=== PATIENT | male | born 1985 | race Caucasian/White ===

== ENCOUNTER 2016-12-25 20:54 | Emergency (ER) | payer BC ==
--- NOTE | 2016-12-25 22:58 | ED ORDER SUMMARY ---
..... Patient: REYNA ANDERSON OrderSheet [facility] VisitID: [id number] [place] [address] 31y, M Registration Date/Time: 12/25/2016 ORDER SHEET Weight: 117.9 kg (stated) Allergies: No Known Drug Allergy GENERAL ORDERS: Visual Acuity (22:09 12/25/2016 Enedina CADET) (Ack 22:12 IJurca ER Tech1) (22:25 RCollier R.N.) MEDICATION ORDERS: Fluorescein Eye Strips [address] strips (place at bedside) (23:08 12/25/2016 RCollier R.N. per protocol) (23:09 RCollier R.N.) Proparacaine Eye Drops (Solution 0.5 %) 1 drop (place at bedside) (23:08 12/25/2016 RCollier R.N. per protocol) (23:09 RCollier R.N.) IV FLUIDS: ORDER SHEET NOTES: [Electronically signed by Reema Vyas R.N. (23:12/25/2016)] [Electronically signed by King Hurtado MD (08:35 12/27/2016)] [Electronically locked/signed by Reema Vyas R.N. (23:12/25/2016)]
--- NOTE | 2016-12-25 22:58 | ED NURSING NOTES ---
Clinical Report - Nurses [facility] [address] [place] [address] 12/25/2016 20:55 Patient: REYNA ANDERSON TRIAGE Triage time 21:55. Acuity: LEVEL 4. Chief Complaint: PAIN and FOREIGN BODY TO LEFT EYE. Alert. No acute distress. --21:59 Reema Vyas R.N. 21:55 12/25/16. BP: 133/85. HR: 79. RR: 16. O2 saturation: 98%. Temp: 98.3 F (oral). Valderrama-Kathleen pain scale: 4/10. --21:59 Reema Vyas R.N. 22:00. VISUAL ACUITY: Visual acuity performed: left eye 20/70; right eye 20/40; both eyes 20/25. Patient does not wear corrective lenses. --22:25 Reema Vyas R.N. Weight: 117.9 kg stated. Height/Length: 75 inches Per Patient. BMI: 32.5. --21:58 Reema Vyas R.N. Medications None. --22:58 Reema Vyas R.N. Allergies No Known Drug Allergy. --22:58 Reema Vyas R.N. History Arrived by private vehicle. Historian: patient. Primary physician (None). 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 This started today. Onset. (at about 1000). He may have sustained an injury. He has had eye discomfort. 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 PAST MEDICAL HX: Immunizations: up-to-date. SOCIAL HX: Never smoker. Occasional alcohol use. No drug use. NUTRITIONAL RISK ASSESSMENT: The nutritional risk assessment revealed no deficiencies. FUNCTIONAL ASSESSMENT: Functional assessment: no impairments noted. --21:59 Reema Vyas R.N. PROBLEMS: no known problems. Interventions ID band on patient. To treatment room. --21:59 Reema Vyas R.N. PHYSICAL ASSESSMENT Ambulatory to room. GENERAL / NEURO / PSYCH: Alert. Appears in no acute distress. RESPIRATORY: Respirations not labored. CVS: Capillary refill less than 2 seconds. SKIN: Skin is warm and dry. --21:59 Reema Vyas R.N. NURSING PROGRESS NOTES Head of bed elevated. Two patient identifiers checked. Call light placed in reach. Side rails up x 1. Bed placed in lowest position. Brakes of bed on. --21:59 Reema Vyas R.N. Patient ready for evaluation- chart flagged. --21:59 Reema Vyas R.N. 22:44 12/25/2016 FLUORESCEIN Opth soln Opthalmic solution 2 Strip given. Allergies verified and confirmed 5 rights. (placed at bedside for MD use). --23:09 Reema Vyas R.N. 22:44 12/25/2016 Proparacaine Eye Drops Opthalmic solution 2 drop given. Allergies verified and confirmed 5 rights. (placed at bedside for EDMD use). --23:09 Reema Vyas R.N. DISPOSITION / DISCHARGE Condition at departure: stable. No learning barriers present. Discharge instructions provided and reviewed with the patient. Reviewed medication(s) side effects, precautions, dosing and course information. Prescription(s) given to the patient. Patient verbalized understanding. Written instructions provided in Irish. The patient was discharged home. He left the Emergency Department ambulatory and via private vehicle. Patient driving. --23:08 Reema Vyas R.N. 23:03 12/25/16. BP: deferred. HR: deferred. RR: 15 (regular and unlabored). O2 saturation: deferred. Temp: deferred. Valderrama-Kathleen pain scale: 2/10. --23:08 Reema Vyas R.N. Locked/Released at 12/25/2016 23:10 by Reema Vyas R.N.
--- NOTE | 2016-12-25 22:58 | ED CLINICAL REPORT ---
Clinical Report - Physicians/Mid Levels [facility] [address] [place] [address] 12/25/2016 20:55 Patient: REYNA ANDERSON Time Seen: 21:52 Pierre 2016. Arrived- By private vehicle. Historian- patient. CPT: ER phys charges level 3 plus (#[id number]). FB cornea with slit lamp remove (#[id number]). HISTORY OF PRESENT ILLNESS Chief Complaint: EYE FOREIGN BODY. This started today, involves the left eye and is characterized as moderate in severity. This occurred at work. He has foreign material in the eye. Eye pain and discomfort. No decreased vision or loss of vision. REVIEW OF SYSTEMS No fever, sore throat or cough. All systems otherwise negative, except as recorded above. PAST HISTORY See nurses notes. Prior eye injury. Tetanus immunization status is up-to-date. Medications: None. Allergies: No Known Drug Allergy. SOCIAL HISTORY Never smoker. Occasional alcohol use. No drug use. ADDITIONAL NOTES The nursing notes have been reviewed. PHYSICAL EXAM Vital Signs: 12/25/2016 21:55 BP: 133/85. HR: 79. RR: 16. O2 saturation: 98%. Temp: 98.3 F. Valderrama-Kathleen pain scale: 4/10. Appearance: Alert. HEENT: Head appears normal to external inspection. Eyes: Visual acuity normal bilaterally. Left eyelid everted for examination. Left cornea examined with fluorescein stain. Eyelids appear normal to inspection. Conjunctivae and sclerae appear normal to inspection. Pupils equal, round and reactive to light. Accommodation normal. EOMs intact. Periorbital areas appear normal to inspection. Left eye examined with slit lamp. Anterior chambers clear. Anterior chambers of normal depth. Rt Eye: Right eye exam normal. A single small particulate corneal foreign body is present superiorly and medially. Single medium sized circular shaped corneal abrasion located centrally. CVS: Normal heart rate and rhythm. Respiratory: No respiratory distress. Skin: No rash. Neuro: Oriented X 3. PROGRESS AND PROCEDURES Removal of Eye Foreign Body: After topical anesthesia with 3 drops of Proparacaine, a single foreign body was successfully removed from the left cornea using the slit lamp (with magnification), a sterile rotating torrie and a sterile syringe with 25 gauge needle and irrigation, fluorescein and a Wood's lamp. There were no complications encountered. Aftercare included antibiotic ointment and an eye patch on the left eye. The patient was cooperative. Patient/family counseled. Disposition: Discharged. Condition: stable and improved. CLINICAL IMPRESSION Medium corneal abrasion to the left eye with foreign body. No rust ring. Removed corneal foreign body left eye. INSTRUCTIONS Warnings: Further evaluation is necessary. GENERAL WARNINGS: Return or contact your physician immediately if your condition worsens or changes unexpectedly, if not improving as expected, or if other problems arise. Prescription Medications: Hydrocodone/APAP 5mg/325mg: take 1 to 2 orally every 6 hours as needed for pain. Dispense fifteen (15). No refills. Garamycin ophthalmic solution 0.3% : Instill 1 drop into affected eye every 4 hours while awake for 1 week. Dispense five (5) mL. No refills. Substitution is permissible. Follow-up: Follow up with your doctor in two days if not better. Understanding of the discharge instructions verbalized by patient. (Electronically signed by King Hurtado MD 12/27/2016 8:35)
--- NOTE | 2016-12-25 22:58 | ED ORDER SUMMARY ---
..... Patient: REYNA ANDERSON OrderSheet [facility] VisitID: [id number] [place] [address] 31y, M Registration Date/Time: 12/25/2016 ORDER SHEET Weight: 117.9 kg (stated) Allergies: No Known Drug Allergy GENERAL ORDERS: Visual Acuity (22:09 12/25/2016 Enedina CADET) (Ack 22:12 IJurca ER Tech1) (22:25 RCollier R.N.) MEDICATION ORDERS: Fluorescein Eye Strips 2 strips (place at bedside) (23:08 12/25/2016 RCollier R.N. per protocol) (23:09 RCollier R.N.) Proparacaine Eye Drops (Solution 0.5 %) 1 drop (place at bedside) (23:08 12/25/2016 RCollier R.N. per protocol) (23:09 RCollier R.N.) IV FLUIDS: ORDER SHEET NOTES: [Electronically signed by Reema Vyas R.N. (23:12/25/2016)] [Electronically signed by King Hurtado MD (08:35 12/27/2016)] [Electronically locked/signed by Reema Vyas R.N. (23:12/25/2016)]
--- NOTE | 2016-12-25 22:58 | ED CLINICAL REPORT ---
Clinical Report - Physicians/Mid Levels [facility] [address] [place] [address] 12/25/2016 20:55 Patient: REYNA ANDERSON Time Seen: 21:52 Pierre 2016. Arrived- By private vehicle. Historian- patient. CPT: ER phys charges level 3 plus (#[id number]). FB cornea with slit lamp remove (#[id number]). HISTORY OF PRESENT ILLNESS Chief Complaint: EYE FOREIGN BODY. This started today, involves the left eye and is characterized as moderate in severity. This occurred at work. He has foreign material in the eye. Eye pain and discomfort. No decreased vision or loss of vision. REVIEW OF SYSTEMS No fever, sore throat or cough. All systems otherwise negative, except as recorded above. PAST HISTORY See nurses notes. Prior eye injury. Tetanus immunization status is up-to-date. Medications: None. Allergies: No Known Drug Allergy. SOCIAL HISTORY Never smoker. Occasional alcohol use. No drug use. ADDITIONAL NOTES The nursing notes have been reviewed. PHYSICAL EXAM Vital Signs: 12/25/2016 21:55 BP: 133/85. HR: 79. RR: 16. O2 saturation: 98%. Temp: 98.3 F. Valderrama-Kathleen pain scale: 4/10. Appearance: Alert. HEENT: Head appears normal to external inspection. Eyes: Visual acuity normal bilaterally. Left eyelid everted for examination. Left cornea examined with fluorescein stain. Eyelids appear normal to inspection. Conjunctivae and sclerae appear normal to inspection. Pupils equal, round and reactive to light. Accommodation normal. EOMs intact. Periorbital areas appear normal to inspection. Left eye examined with slit lamp. Anterior chambers clear. Anterior chambers of normal depth. Rt Eye: Right eye exam normal. A single small particulate corneal foreign body is present superiorly and medially. Single medium sized circular shaped corneal abrasion located centrally. CVS: Normal heart rate and rhythm. Respiratory: No respiratory distress. Skin: No rash. Neuro: Oriented X 3. PROGRESS AND PROCEDURES Removal of Eye Foreign Body: After topical anesthesia with 3 drops of Proparacaine, a single foreign body was successfully removed from the left cornea using the slit lamp (with magnification), a sterile rotating torrie and a sterile syringe with 25 gauge needle and irrigation, fluorescein and a Wood's lamp. There were no complications encountered. Aftercare included antibiotic ointment and an eye patch on the left eye. The patient was cooperative. Patient/family counseled. Disposition: Discharged. Condition: stable and improved. CLINICAL IMPRESSION Medium corneal abrasion to the left eye with foreign body. No rust ring. Removed corneal foreign body left eye. INSTRUCTIONS Warnings: Further evaluation is necessary. GENERAL WARNINGS: Return or contact your physician immediately if your condition worsens or changes unexpectedly, if not improving as expected, or if other problems arise. Prescription Medications: Hydrocodone/APAP 5mg/325mg: take 1 to 2 orally every 6 hours as needed for pain. Dispense fifteen (15). No refills. Garamycin ophthalmic solution 0.3% : Instill 1 drop into affected eye every 4 hours while awake for 1 week. Dispense five (5) mL. No refills. Substitution is permissible. Follow-up: Follow up with your doctor in two days if not better. Understanding of the discharge instructions verbalized by patient. (Electronically signed by King Hurtado MD 12/27/2016 8:35)
--- NOTE | 2016-12-25 22:58 | ED NURSING NOTES ---
Clinical Report - Nurses [facility] [address] [place] [address] 12/25/2016 20:55 Patient: REYNA ANDERSON TRIAGE Triage time 21:55. Acuity: LEVEL 4. Chief Complaint: PAIN and FOREIGN BODY TO LEFT EYE. Alert. No acute distress. --21:59 Reema Vyas R.N. 21:55 12/25/16. BP: 133/85. HR: 79. RR: 16. O2 saturation: 98%. Temp: 98.3 F (oral). Valderrama-Kathleen pain scale: 4/10. --21:59 Reema Vyas R.N. 22:00. VISUAL ACUITY: Visual acuity performed: left eye 20/70; right eye 20/40; both eyes 20/25. Patient does not wear corrective lenses. --22:25 Reema Vyas R.N. Weight: 117.9 kg stated. Height/Length: 75 inches Per Patient. BMI: 32.5. --21:58 Reema Vyas R.N. Medications None. --22:58 Reema Vyas R.N. Allergies No Known Drug Allergy. --22:58 Reema Vyas R.N. History Arrived by private vehicle. Historian: patient. Primary physician (None). 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 This started today. Onset. (at about 1000). He may have sustained an injury. He has had eye discomfort. 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 PAST MEDICAL HX: Immunizations: up-to-date. SOCIAL HX: Never smoker. Occasional alcohol use. No drug use. NUTRITIONAL RISK ASSESSMENT: The nutritional risk assessment revealed no deficiencies. FUNCTIONAL ASSESSMENT: Functional assessment: no impairments noted. --21:59 Reema Vyas R.N. PROBLEMS: no known problems. Interventions ID band on patient. To treatment room. --21:59 Reema Vyas R.N. PHYSICAL ASSESSMENT Ambulatory to room. GENERAL / NEURO / PSYCH: Alert. Appears in no acute distress. RESPIRATORY: Respirations not labored. CVS: Capillary refill less than 2 seconds. SKIN: Skin is warm and dry. --21:59 Reema Vyas R.N. NURSING PROGRESS NOTES Head of bed elevated. Two patient identifiers checked. Call light placed in reach. Side rails up x 1. Bed placed in lowest position. Brakes of bed on. --21:59 Reema Vyas R.N. Patient ready for evaluation- chart flagged. --21:59 Reema Vyas R.N. 22:44 12/25/2016 FLUORESCEIN Opth soln Opthalmic solution 2 Strip given. Allergies verified and confirmed 5 rights. (placed at bedside for MD use). --23:09 Reema Vyas R.N. 22:44 12/25/2016 Proparacaine Eye Drops Opthalmic solution 2 drop given. Allergies verified and confirmed 5 rights. (placed at bedside for EDMD use). --23:09 Reema Vyas R.N. DISPOSITION / DISCHARGE Condition at departure: stable. No learning barriers present. Discharge instructions provided and reviewed with the patient. Reviewed medication(s) side effects, precautions, dosing and course information. Prescription(s) given to the patient. Patient verbalized understanding. Written instructions provided in Kiswahili. The patient was discharged home. He left the Emergency Department ambulatory and via private vehicle. Patient driving. --23:08 Reema Vyas R.N. 23:03 12/25/16. BP: deferred. HR: deferred. RR: 15 (regular and unlabored). O2 saturation: deferred. Temp: deferred. Valderrama-Kathleen pain scale: 2/10. --23:08 Reema Vyas R.N. Locked/Released at 12/25/2016 23:10 by Reema Vyas R.N.
--- NOTE | 2016-12-27 08:36 | ED MAR SUMMARY ---
..... Medication Administration Record [facility] [address] [place] [address] Patient: REYNA ANDERSON Visit ID: [id number] 31y, M Weight: 117.9 kg Height/Length: 75 in BMI: 32.5 ALLERGIES: No Known Drug Allergy Given 22:44 12/25/2016 Reema Vyas, R.N. Medication Administered: FLUORESCEIN [EYE STRIPS], Dose: 2 Strip Opthalmic solution Opth soln. Medication Ordered: Fluorescein Eye Strips 2 strips (place at bedside). Given 22:44 12/25/2016 Reema Vyas, R.N. Medication Administered: PROPARACAINE [EYE DROPS], Dose: 2 drop Opthalmic solution Eye Drops. Medication Ordered: Proparacaine Eye Drops (Solution 0.5 %) 1 drop (place at bedside).
--- NOTE | 2016-12-27 08:36 | ED DISCHARGE INSTRUCTIONS ---
Patient: REYNA ANDERSON General Instructions [facility] VisitID: [id number] [place] [address] 31y, M Registration Date/Time: 12/25/2016 Medium corneal abrasion to the left eye with foreign body. No rust ring. Removed corneal foreign body left eye. INSTRUCTIONS Warnings: Further evaluation is necessary. GENERAL WARNINGS: Return or contact your physician immediately if your condition worsens or changes unexpectedly, if not improving as expected, or if other problems arise. Prescription Medications: Hydrocodone/APAP 5mg/325mg: take 1 to 2 orally every 6 hours as needed for pain. Dispense fifteen (15). No refills. Garamycin ophthalmic solution 0.3% : Instill 1 drop into affected eye every 4 hours while awake for 1 week. Dispense five (5) mL. No refills. Substitution is permissible. Follow-up: Follow up with your doctor in two days if not better. Understanding of the discharge instructions verbalized by patient. ADDITIONAL INFORMATION Corneal Abrasion The cornea is the clear part in the front of the eye. This sensitive area is very painful when injured. There may be tearing and your vision may be blurry until healing occurs. You may be sensitive to light. This part of the body heals quickly. You can expect the pain to go away within 24-48 hours. If the abrasion is large or deep, your doctor may apply an eye patch, although this is not always done. An antibiotic ointment or eye drops may also be used to prevent infection. Numbing drops may be used to relieve the pain temporarily so that your eyes can be examined. However, these drops cannot be prescribed for home use because that would slow down the healing process. Also, if you cant feel your eye, there is a chance of accidentally injuring your eye further without knowing it. Home Care: A cold pack (ice in a plastic bag, wrapped in a towel) may be applied over the eye (or eyepatch) for 20 minutes at a time, to reduce pain. You may use acetaminophen (Tylenol) or ibuprofen (Motrin, Advil) to control pain, unless another pain medicine was prescribed. [NOTE: If you have chronic liver or kidney disease or ever had a stomach ulcer or GI bleeding, talk with your doctor before using these medicines.] Rest your eyes and do not read until symptoms are gone. If you use contact lenses, do not wear them until all symptoms are gone. If your vision is affected by the corneal abrasion or if an eyepatch was applied, DO NOT DRIVE a motor vehicle or operate machinery until all symptoms are gone. Otherwise, you would have trouble judging distances with only one eye. If your eyes are sensitive to light, try wearing sunglasses, or stay indoors, until symptoms go away. Follow Up as advised by our staff. Serious abrasions may be referred to an network and threat support specialist (provider engagement executive). If no patch was used but the pain continues for more than 48 hours, you should have another exam. Return to this facility or contact the referral doctor to arrange this. If your eye was patched and if you were asked to remove the patch yourself, see your doctor or return to this facility if your pain is still present after the patch is removed. If you were given a return appointment for patch removal and re-exam, do not miss this. It could be harmful if the patch remains in place longer than advised. Get Prompt Medical Attention if any of the following occur: Increasing eye pain or pain that does not improve after 24 hours Discharge from the eye Increasing redness of the eye or swelling of the eyelids Your vision gets worse Particle Removed From Eye [Corneal F.B.] A particle got into your eye and stuck to the cornea (the clear part in front of the eye). Your doctor has removed this particle. The cornea is very sensitive and may still hurt for another one to two days while it heals. If a metal particle was in your eye, a "rust ring" may have formed. This may require a second visit for complete removal. Home Care: A cold pack (ice in a plastic bag, wrapped in a towel) may be applied over the eye for 20 minutes at a time to reduce pain. You may use acetaminophen (Tylenol) or ibuprofen (Motrin, Advil) to control pain, unless another pain medicine was prescribed. [NOTE: If you have chronic liver or kidney disease or ever had a stomach ulcer or GI bleeding, talk with your doctor before using these medicines.] If an EYE PATCH was applied: You may place the ice pack directly over the eye-patch. If you were given a return appointment for patch removal and re-exam, do not miss it. An eye patch should not be left in place for more than 48 hours, unless advised to do so by your doctor. DO NOT DRIVE a motor vehicle or operate machinery with the patch in place since you will have difficulty in judging distances with only one eye. If eye drops or ointment was prescribed, take as directed. Follow Up: If no patch was used but the pain continues for more than 48 hours, you should have another exam. Return to this facility or contact the referral doctor to arrange this. If your eye was patched and if you were asked to remove the patch yourself, see your doctor or return to this facility if your pain is still present after removal. If you were given a return appointment for patch removal and re-exam, do not miss this. It could be harmful if the patch remains in place longer than advised. Get Prompt Medical Attention if any of the following occur: Increasing eye pain or pain that does not improve after 24 hours Discharge from the eye Redness of the eye or swelling of the eyelids Worsening vision You have been given the following additional information: Corneal Abrasion Corneal Foreign Body, Removed (Electronically signed by King Hurtado MD 12/27/2016 8:35)
--- NOTE | 2016-12-27 08:36 | ED MED RECONCILIATION SUMMARY ---
Patient: REYNA ANDERSON Medication Reconciliation Report [facility] VisitID: [id number] [place] [address] 31y, M Registration Date/Time: 12/25/2016 Weight: 117.9 kg Height/Length: 75 in. BMI: 32.5 ALLERGIES: No Known Drug Allergy The patient's Home Medications are listed below: NONE. The source(s) of the original Home Medication information: Not obtained. The following Medications were given to the patient in the Emergency Department: FLUORESCEIN [EYE STRIPS] Opth soln 2 Strip, administered: 12/25/2016 10:44:00 PM Proparacaine [Eye Drops] Eye Drops 2 drop, administered: 12/25/2016 10:44:00 PM The following Medications were prescribed to the patient: Hydrocodone/APAP 5mg/325mg: take 1 to 2 orally every 6 hours as needed for pain. Dispense fifteen (15). No refills. -- King Hurtado MD Garamycin ophthalmic solution 0.3% : Instill 1 drop into affected eye every 4 hours while awake for 1 week. Dispense five (5) mL. No refills. Substitution is permissible. -- King Hurtado MD
--- NOTE | 2016-12-27 08:36 | ED MAR SUMMARY ---
..... Medication Administration Record [facility] [address] [place] [address] Patient: REYNA ANDERSON Visit ID: [id number] 31y, M Weight: 117.9 kg Height/Length: 75 in BMI: 32.5 ALLERGIES: No Known Drug Allergy Given 22:44 12/25/2016 Reema Vyas, R.N. Medication Administered: FLUORESCEIN [EYE STRIPS], Dose: 2 Strip Opthalmic solution Opth soln. Medication Ordered: Fluorescein Eye Strips 2 strips (place at bedside). Given 22:44 12/25/2016 Reema Vyas, R.N. Medication Administered: PROPARACAINE [EYE DROPS], Dose: 2 drop Opthalmic solution Eye Drops. Medication Ordered: Proparacaine Eye Drops (Solution 0.5 %) 1 drop (place at bedside).
--- NOTE | 2016-12-27 08:36 | ED MED RECONCILIATION SUMMARY ---
Patient: REYNA ANDERSON Medication Reconciliation Report [facility] VisitID: [id number] [place] [address] 31y, M Registration Date/Time: 12/25/2016 Weight: 117.9 kg Height/Length: 75 in. BMI: 32.5 ALLERGIES: No Known Drug Allergy The patient's Home Medications are listed below: NONE. The source(s) of the original Home Medication information: Not obtained. The following Medications were given to the patient in the Emergency Department: FLUORESCEIN [EYE STRIPS] Opth soln 2 Strip, administered: 12/25/2016 10:44:00 PM Proparacaine [Eye Drops] Eye Drops 2 drop, administered: 12/25/2016 10:44:00 PM The following Medications were prescribed to the patient: Hydrocodone/APAP 5mg/325mg: take 1 to 2 orally every 6 hours as needed for pain. Dispense fifteen (15). No refills. -- King Hurtado MD Garamycin ophthalmic solution 0.3% : Instill 1 drop into affected eye every 4 hours while awake for 1 week. Dispense five (5) mL. No refills. Substitution is permissible. -- King Hurtado MD
== END 2016-12-25 23:03 | disposition home or self-care (01) ==
LOC: ED SRH 20:54
DX: T15.02XA Foreign body in cornea, left eye, initial encounter (principal); X58.XXXA Exposure to other specified factors, initial encounter; Y93.89 Activity, other specified; Y99.9 Unspecified external cause status; Y92.9 Unspecified place or not applicable